=== PATIENT | male | born 1970 | race Caucasian/White ===

== ENCOUNTER 2020-09-16 08:03 | Inpatient (IN) | payer MEDICARE, OTHER ==
[~2020-09-16] VITALS: Ht 114.3 cm; Wt 69.9 kg
[2020-09-16 09:34] LABS: Alanine Aminotransferase 18 U/L (16-61); Albumin 4.4 g/dL (3.4-5.0); Anion Gap 21 (5-15); Blood Urea Nitrogen 39 mg/dL (7-18); Calcium 10.7 mg/dL (8.5-10.1); Carbon Dioxide 13 mmol/L (21-32); Chloride 86 mmol/L (98-107); Magnesium 2.9 mg/dL (1.6-2.6); Sodium 120 mmol/L (136-145)
[2020-09-16 09:36] LABS: Basophils # (auto) 0 10 ^3/uL (0-0.2); Basophils % (auto) 0.4 % (0.0-2.0); Eosinophils # (auto) 0 10 ^3/uL (0-0.8); Eosinophils % (auto) 0.1 % (0.0-7.0); Hematocrit 43.3 % (41.0-53.0); Hemoglobin 13.6 g/dL (13.5-17.5); Lymphocytes # (auto) 1.1 10 ^3/uL (0.4-5.4); Mean Corpuscular Hemoglobin 30.1 pg (28.0-32.0); Mean Corpuscular Hgb Conc. 31.4 g/dL (32.0-36.0); Mean Corpuscular Volume 95.8 fL (80.0-100.0); Monocytes # (auto) 0.2 10 ^3/uL (0-1.3); Monocytes % (auto) 3.7 % (0.0-12.0); Neutrophils # (auto) 5.3 10 ^3/uL (1.6-8.6); Neutrophils % (auto) 79.8 % (37.0-80.0); Platelet Count (auto) 392 10^3/uL (140-450); Red Blood Cells 4.52 10^6/uL (4.5-5.90); Red Cell Distribution Width 14.4 % (11.8-14.3); White Blood Cell 6.6 10^3/uL (4.4-10.8)
[2020-09-16 09:43] LABS: Alkaline Phosphatase 191 U/L (45-117); Aspartate Aminotransferase 9 U/L (15-37); BUN/Creatinine Ratio 23.4; Bilirubin, Total 0.8 mg/dL (0.2-1.0); GFR African American 57 mL/min; GFR Non-African American 47 mL/min; Total Protein 8.9 g/dL (6.4-8.2)
[2020-09-16 09:44] LABS: Glucose 848 mg/dL (74-106); Potassium 6.2 mmol/L (3.5-5.1)
[2020-09-16] MEDS ORDERED: SODIUM CHLORIDE 0.9% 3,000 ML IV ONE (10:00)
[2020-09-16] MEDS ORDERED: InsuLIN R (HUMAN) 100 UNITS in SODIUM CHL 0.9% 99 ML IV SCH ×3 (11:15→18:00)
[2020-09-16] MEDS ORDERED: INSULIN LANTUS (GLARGINE) 1 /0.01ml (100units/ml) SC ONE (11:15)
[2020-09-16] MEDS ORDERED: DEXTROSE (50%) 50ML SYRG IV PRN (11:15)
[2020-09-16] MEDS: SODIUM CHLORIDE 0.9% 1,000 ML IV SCH ×3 (11:52→18:33)
[2020-09-16] MEDS: ACCU-CHEK COMFORT CURVE STRIP VI SCH ×8 (11:54→22:41)
[2020-09-16] MEDS ORDERED: PROCHLORPERAZINE EDISYLATE 5 MG/ML 2ML VIAL IV ONE (12:00)
[2020-09-16] MEDS ORDERED: MORPHINE SULFATE 4 MG/ML SYR/VIAL IV ONE (12:00)
[2020-09-16] MEDS ORDERED: NITROGLYCERIN 0.4 MG SL TAB SL PRN (12:15)
[2020-09-16] MEDS ORDERED: MORPHINE SULF INJ 2 MG/ML SYRINGE 1ML IV PRN (12:15)
[2020-09-16] MEDS ORDERED: ONDANSETRON HCL 4 MG/2 ML VIAL IV PRN (12:15)
[2020-09-16] MEDS ORDERED: InsuLIN REG 1unit/0.01ml Soln (100units/ml) IV ONE (12:15)
[2020-09-16] MEDS ORDERED: CALCIUM GLUC 4.65meq/50ml D5AE 50 ML IV ONE (12:15)
[2020-09-16] MEDS ORDERED: SODIUM BICARBONATE 8.4 % INJ 50ML VIAL IV ONE (12:15)
[2020-09-16] MEDS ORDERED: ENOXAPARIN SOD 30 MG/0.3 ML SYRINGE SC ONE (12:30)
[2020-09-16 13:22] LABS: BUN/Creatinine Ratio 23.2; Calcium 9.6 mg/dL (8.5-10.1)
[2020-09-16 13:36] LABS: Potassium 6.8 mmol/L (3.5-5.1)
[2020-09-16] MEDS ORDERED: SODIUM CHLORIDE 0.9% 1,000 ML IV SCH (15:15)
[2020-09-16 17:50] LABS: Calcium 8.9 mg/dL (8.5-10.1); Potassium 5.3 mmol/L (3.5-5.1)
[2020-09-16 17:54] LABS: BUN/Creatinine Ratio 22.3
[2020-09-16 19:29] LABS: Urine Bacteria NONE SEEN /hpf (None Seen); Urine Blood Negative /uL (Negative); Urine Mucus FEW (None Seen); Urine Specific Gravity 1.021 (1.001-1.035); Urine WBC 1 /hpf (0 - 3)
[2020-09-16 19:50] LABS: Amphetamine Screen, Urine NEGATIVE (NEGATIVE); Barbiturate Scree,Urine NEGATIVE (NEGATIVE); Benzodiazephine Screen, Urine NEGATIVE (NEGATIVE); Cannabinoid Screen, Urine POSITIVE (NEGATIVE); Cocaine Screen, Urine NEGATIVE (NEGATIVE); Opiate Scree,Urine NEGATIVE (NEGATIVE); Phencyclidine Screen, Urine NEGATIVE (NEGATIVE)
[2020-09-16 23:36] LABS: BUN/Creatinine Ratio 25.8; Calcium 8.9 mg/dL (8.5-10.1); Potassium 4.3 mmol/L (3.5-5.1)
[2020-09-17] MEDS: ACCU-CHEK COMFORT CURVE STRIP VI SCH ×8 (00:10→23:30)
[2020-09-17] MEDS: SODIUM CHLORIDE 0.9% 1,000 ML IV SCH (00:10)
--- NOTE | 2020-09-17 03:00 | NUR ---
Called [facility] RN for report. Notified that pt has no new orders. Old critical care orders are still active. [facility] RN states he paged [employer]END[employer] "three hours ago" but will call Liu DELORIS again for new orders prior to patient coming upstairs. Awaiting patient to come up. Room prepared, bed zeroed, bedside table setup.
[2020-09-17] MEDS: MORPHINE SULF INJ 2 MG/ML SYRINGE 1ML IV PRN ×4 (03:19→20:05)
[2020-09-17 03:20] VITALS: BP 104/52
--- NOTE | 2020-09-17 03:20 | NUR ---
Telemetry admit from ER ALBERTO GARCIA admitted to Telemetry unit after SBAR received. Patient oriented to GIL LUNDY RN primary RN, unit, room, bed, and unit policies regarding patient care and visiting hours. Patient now on continuous telemetry monitoring, tele box #[id number] and telemetry reading on arrival to unit is . Patient placed on bedside oxygen, weighed by bedscale and encouraged to call if they need something. All questions and concerns addressed, patient verbalized understanding. Note:
--- NOTE | 2020-09-17 03:55 | NUR ---
returned call Noe PUENTES returned call, updated on patient status and reason for call. Notified that pt has no new orders. Old critical care orders are still active. [facility] ED RN never followed up on clarifying orders prior to patient coming upstairs. New orders received and read back. Call lópez within reach. Bed alarm on. Will continue to monitor patient.
[2020-09-17] MEDS: InsuLIN REG 1unit/0.01ml Soln (100units/ml) SC SCH ×6 (04:00→23:31)
--- NOTE | 2020-09-17 04:00 | NUR ---
Admitting notified of pt's incorrect name spelling. Correct spelling: Ck Ballard.
[2020-09-17] MEDS ORDERED: DEXTROSE (50%) 50ML SYRG IV PRN (04:15)
--- NOTE | 2020-09-17 05:05 | NUR ---
0440 Pt's blood sugar checked, resulted at 25. Rechecked on opposite hand, resulted at 27. Three [place]ht[place] Juice's given with sugar. Will recheck blood sugar. 0505 Pt's blood sugar rechecked. Resulted at 120. Will notify hospitalist. Pt resting comfortably in bed. Call lópez within reach. Will continue to monitor for comfort.
--- NOTE | 2020-09-17 06:00 | NUR ---
Called/tavond Noe TWISTHAND called to notify of critical blood sugar of 25. Waiting for call back. Continue care.
--- NOTE | 2020-09-17 06:51 | NUR ---
returned call Noe PUENTES called to notify of critical blood sugar of 25. Also made aware of repeat at 120. No new orders received. Continue care.
[2020-09-17 08:49] LABS: Calcium 8.7 mg/dL (8.5-10.1); Magnesium 2.4 mg/dL (1.6-2.6); Potassium 4.3 mmol/L (3.5-5.1)
[2020-09-17 08:53] LABS: BUN/Creatinine Ratio 33.3; Bilirubin, Total 0.2 mg/dL (0.2-1.0)
[2020-09-17 09:00] VITALS: BP 109/64
[2020-09-17] MEDS ORDERED: ENOXAPARIN SOD 30 MG/0.3 ML SYRINGE SC SCH (10:00)
[2020-09-17] MEDS ORDERED: INSULIN LANTUS (GLARGINE) 1 /0.01ml (100units/ml) SC SCH (10:00)
--- NOTE | 2020-09-17 11:58 | NUR ---
DR. MILLS IN TO SEE PT. US GALLBLADDER ORDERED.
[2020-09-17 12:14] LABS: Amylase 167 U/L (25-115); Lipase 629 U/L (73-393)
[2020-09-17 13:00] VITALS: BP 109/58
[2020-09-17] MEDS ORDERED: PANTOPRAZOLE 40 MG/10 ML VIAL INJ IV ONE (13:15)
[2020-09-17] MEDS ORDERED: LORazepam 0.5 MG TAB PO PRN (14:15)
[2020-09-17] MEDS: POTASSIUM CHLORIDE 20 MEQ in D5W/LACTATED RINGERS 1,000 ML IV SCH (14:20)
--- NOTE | 2020-09-17 14:43 | NUR ---
Assessment The patient is a 50-year-old male, who is alert and oriented. Patient cognitive abilities are intact. Patient stated that he can do all ADLs independently, patient uses a wheelchair for mobility. Patient stated that he has bi-lateral below the knee amputations. Patient has medical history of diabetes and states that he is insulin-dependent. Patient stated that he has ran out of insulin supplies for a week. Patient stated that he has history with illicit drugs and alcohol abuse in his past. Patient stated that he lives with his sister in [place]. Patient stated that he is visiting [place] on a [employer] trip. Patient stated that he is temporary staying at a [email or web address] house, patient stated that he has a friend (Herve [phone]), Patient stated that his friend Herve will provide transportation post discharge. Patient stated that he receives SSI as a form of income. Patient stated that he has an Advance Directive completed in [place]. Discharge planning: SW provided resources for inpatient and outpatient resources for drug rehabilitation centers including [facility]. SW will ask beside nurse to ask MD to write a one month prescription for diabetic homecare use. Addendum: 09/17/20 at 1444 by TARI CORDERO Amended: Links added.
--- NOTE | 2020-09-17 14:58 | NUR ---
ss consult Per consult no PCP. Betzy Escudero has set patient up with Dr Montez for PCP. Addendum: 09/17/20 at 1459 by Betzy CORDERO Amended: Links added.
[2020-09-17 17:00] VITALS: BP 118/68
--- NOTE | 2020-09-17 17:00 | NUR ---
RFA#18 AND LFA#20 IV CATHETER DC'D, CATHETER INTACT.
[2020-09-17] MEDS: HYDROcodone-ACET 5/325MG TAB PO PRN ×2 (18:03→21:47)
--- NOTE | 2020-09-17 20:05 | NUR ---
Opening Shift Note Assumed care of patient, awake and alert. No S/S of distress/SOB c/o abdominal pain. Instructed on POC and to call for assist PRN, will continue to monitor for changes Q1hr and PRN.Medicated with Morphine 2mg.i.v.p.for pain level of 7/10 as needed.
[2020-09-17 22:00] VITALS: BP 122/68
[2020-09-18] MEDS: MORPHINE SULF INJ 2 MG/ML SYRINGE 1ML IV PRN ×5 (00:20→21:53)
[2020-09-18] MEDS: POTASSIUM CHLORIDE 20 MEQ in D5W/LACTATED RINGERS 1,000 ML IV SCH (00:24)
[2020-09-18] MEDS: HYDROcodone-ACET 5/325MG TAB PO PRN ×4 (03:34→23:36)
[2020-09-18] MEDS: ACCU-CHEK COMFORT CURVE STRIP VI SCH ×6 (03:35→23:39)
[2020-09-18] MEDS: InsuLIN REG 1unit/0.01ml Soln (100units/ml) SC SCH ×6 (03:39→23:41)
[2020-09-18 05:00] VITALS: BP 134/61
--- NOTE | 2020-09-18 07:07 | NUR ---
Report given to Alayna Villegas, patient is resting no distress.
[2020-09-18 07:14] LABS: Basophils # (auto) 0 10 ^3/uL (0-0.2); Basophils % (auto) 0.4 % (0.0-2.0); Eosinophils # (auto) 0 10 ^3/uL (0-0.8); Hematocrit 31.1 % (41.0-53.0); Hemoglobin 10.6 g/dL (13.5-17.5); Lymphocytes # (auto) 1.3 10 ^3/uL (0.4-5.4); Lymphocytes % (auto) 29.5 % (10.0-50.0); Mean Corpuscular Hemoglobin 30.5 pg (28.0-32.0); Mean Corpuscular Hgb Conc. 34.1 g/dL (32.0-36.0); Mean Corpuscular Volume 89.2 fL (80.0-100.0); Monocytes # (auto) 0.3 10 ^3/uL (0-1.3); Monocytes % (auto) 6.9 % (0.0-12.0); Neutrophils # (auto) 2.8 10 ^3/uL (1.6-8.6); Neutrophils % (auto) 62.2 % (37.0-80.0); Platelet Count (auto) 233 10^3/uL (140-450); Red Blood Cells 3.49 10^6/uL (4.5-5.90); Red Cell Distribution Width 14.6 % (11.8-14.3); White Blood Cell 4.5 10^3/uL (4.4-10.8)
[2020-09-18 07:27] LABS: INR 0.97 (0.9-1.15)
[2020-09-18 07:59] LABS: Albumin 2.9 g/dL (3.4-5.0); Calcium 8.5 mg/dL (8.5-10.1); Potassium 4.1 mmol/L (3.5-5.1)
[2020-09-18 08:03] LABS: BUN/Creatinine Ratio 14.3; Bilirubin, Total 0.3 mg/dL (0.2-1.0)
[2020-09-18] MEDS: ENOXAPARIN SOD 40 MG/0.4 ML SYRINGE SC SCH (08:37)
[2020-09-18 09:00] VITALS: BP 159/84
[2020-09-18] MEDS ORDERED: POTASSIUM CHLORIDE 20 MEQ in D5W/LACTATED RINGERS 1,000 ML IV SCH (09:15)
[2020-09-18] MEDS: PANTOPRAZOLE 40 MG/10 ML VIAL INJ IV SCH ×2 (09:44→21:54)
[2020-09-18] MEDS: SUCRALFATE 1 GM/10 ML ORAL SUSP PO SCH ×3 (09:58→21:54)
[2020-09-18] MEDS ORDERED: INSULIN LANTUS (GLARGINE) 1 /0.01ml (100units/ml) SC SCH (10:00)
[2020-09-18] MEDS ORDERED: PANTOPRAZOLE 40 MG/10 ML VIAL INJ IV SCH (10:00)
[2020-09-18 10:09] LABS: Urine Bacteria NONE SEEN /hpf (None Seen); Urine Blood Negative /uL (Negative); Urine Specific Gravity 1.017 (1.001-1.035); Urine WBC 19 /hpf (0 - 3)
[2020-09-18] MEDS ORDERED: cefTRIAXone 1GM/50ML D5W 50 ML IV ONE (10:45)
[2020-09-18] MEDS: PHENAZOPYRIDINE HCL 100 MG TAB PO SCH ×2 (11:43→17:58)
--- NOTE | 2020-09-18 12:05 | NUR ---
Nutrition Assessment Est energy needs 5130-5638 kcal (20-25 kcal/kg BW 75.2kg) Est protein needs 60-75g (0.8-1g/kg BW 75.2kg) Will monitor and reassess prn. Addendum: 09/18/20 at [address] Amended: Links added.
[2020-09-18 13:00] VITALS: BP 130/77
[2020-09-18] MEDS ORDERED: SOD CHL 0.45% 1,000 ML IV ONE (15:15)
[2020-09-18 17:00] VITALS: BP 121/68
--- NOTE | 2020-09-18 19:15 | NUR ---
Opening Shift Note Assumed care of patient, awake and alert. No S/S of distress/SOB or pain. Patient safety measures in place side rails up x2, call light within reach, and bed in lowest position. Instructed on POC and to call for assist PRN, will continue to monitor for changes Q1hr and PRN.
[2020-09-18 22:00] VITALS: BP 131/77
[2020-09-19] MEDS: MORPHINE SULF INJ 2 MG/ML SYRINGE 1ML IV PRN (02:18)
[2020-09-19] MEDS: InsuLIN REG 1unit/0.01ml Soln (100units/ml) SC SCH ×3 (04:00→23:54)
[2020-09-19] MEDS: ACCU-CHEK COMFORT CURVE STRIP VI SCH ×3 (04:23→23:54)
[2020-09-19 05:00] VITALS: BP 137/82
[2020-09-19] MEDS: SUCRALFATE 1 GM/10 ML ORAL SUSP PO SCH ×4 (06:43→22:35)
[2020-09-19 09:00] VITALS: BP 132/72
--- NOTE | 2020-09-19 09:10 | NUR ---
THIS RN SPOKE TO DR. MILLS WITH RESPECT TO THE PT.'S BLOOD SUGAR LEVEL OF 470. DR. MILLS SAID TO FOLLOW SLIDING SCALE; PT. GIVEN 10 UNITS.
[2020-09-19] MEDS: PHENAZOPYRIDINE HCL 100 MG TAB PO SCH ×3 (09:33→18:47)
[2020-09-19] MEDS: ENOXAPARIN SOD 40 MG/0.4 ML SYRINGE SC SCH (09:34)
[2020-09-19] MEDS: cefTRIAXone 1GM/50ML D5W 50 ML IV SCH (09:34)
[2020-09-19] MEDS: PANTOPRAZOLE 40 MG/10 ML VIAL INJ IV SCH ×2 (09:35→22:34)
[2020-09-19 13:00] VITALS: BP 122/71
[2020-09-19] MEDS ORDERED: INSULIN LANTUS (GLARGINE) 1 /0.01ml (100units/ml) SC SCH (13:45)
[2020-09-19] MEDS ORDERED: DEXTROSE (50%) 50ML SYRG IV PRN ×2 (13:45)
--- NOTE | 2020-09-19 15:23 | NUR ---
Discharge instructions given as ordered. Encourage to follow up with PMD as instructed. All questions and concerns addressed. Patient verbalized understanding. Medication reconciliation form completed and copy given to patient. IV removed with catheter intact, and pressure dressing applied. Telemetry unit returned to ICU. Patient taken to vehicle via wheelchair with all personal belongings, accompanied by staff. No distress noted at time of departure. Addendum: 09/19/20 at 1627 by JOSE PULIDO RN RN incorrect pt. disregard.
[2020-09-19] MEDS: METOCLOPRAMIDE HCL 5MG/ml INJ 2ml VIAL IV SCH ×2 (15:35→22:34)
[2020-09-19] MEDS: HYDROmorphone HCL 2 MG/ML VL IV PRN ×2 (15:35→20:54)
[2020-09-19 17:00] VITALS: BP 135/79
--- NOTE | 2020-09-19 20:37 | NUR ---
Dr. Zazueta called and said she was placing the order for the patient to be NPO after midnight, she is going to check the OR schedule tomorrow 09/20/20 and see if she will schedule him for an EGD.
[2020-09-19] MEDS: PROMETHAZINE HCL 25 MG/ML 1ML IV PRN (20:54)
[2020-09-19 22:00] VITALS: BP 135/80
[2020-09-19] MEDS: INSULIN LANTUS (GLARGINE) 1 /0.01ml (100units/ml) SC SCH (22:35)
--- NOTE | 2020-09-20 01:35 | NUR ---
IV removal from MASOOD due to infiltration IV DC'd with clean sterile technique, catheter fully intact. Pressure dressing applied to site. Patient tolerated well.
--- NOTE | 2020-09-20 01:55 | NUR ---
IV insertion IV access obtained, via clean sterile technique by inserting 22 gauge catheter at ANA LAURA after 9 attempt(s). IV secured properly. No trauma to site. Patient tolerated well.
[2020-09-20] MEDS: PROMETHAZINE HCL 25 MG/ML 1ML IV PRN ×3 (02:00→18:49)
[2020-09-20] MEDS: HYDROmorphone HCL 2 MG/ML VL IV PRN ×5 (02:00→21:03)
[2020-09-20 05:00] VITALS: BP 116/70
[2020-09-20 05:24] LABS: Basophils # (auto) 0 10 ^3/uL (0-0.2); Basophils % (auto) 0.7 % (0.0-2.0); Eosinophils # (auto) 0.1 10 ^3/uL (0-0.8); Eosinophils % (auto) 3.2 % (0.0-7.0); Hematocrit 37.3 % (41.0-53.0); Hemoglobin 12.4 g/dL (13.5-17.5); Lymphocytes # (auto) 1.4 10 ^3/uL (0.4-5.4); Lymphocytes % (auto) 43.2 % (10.0-50.0); Mean Corpuscular Hgb Conc. 33.4 g/dL (32.0-36.0); Monocytes # (auto) 0.3 10 ^3/uL (0-1.3); Monocytes % (auto) 8.9 % (0.0-12.0); Neutrophils # (auto) 1.4 10 ^3/uL (1.6-8.6); Nucleated Red Blood Cells % 0.2 %; Platelet Count (auto) 264 10^3/uL (140-450); Red Blood Cells 4.14 10^6/uL (4.5-5.90); Red Cell Distribution Width 14.6 % (11.8-14.3); White Blood Cell 3.3 10^3/uL (4.4-10.8)
[2020-09-20] MEDS: InsuLIN REG 1unit/0.01ml Soln (100units/ml) SC SCH ×3 (06:00→17:43)
[2020-09-20] MEDS: ACCU-CHEK COMFORT CURVE STRIP VI SCH ×3 (06:20→17:42)
[2020-09-20] MEDS: METOCLOPRAMIDE HCL 5MG/ml INJ 2ml VIAL IV SCH ×3 (06:38→21:47)
[2020-09-20] MEDS: SUCRALFATE 1 GM/10 ML ORAL SUSP PO SCH ×4 (06:38→21:47)
--- NOTE | 2020-09-20 07:30 | NUR ---
Opening Shift Note Assumed care of patient, awake and alert. No S/S of distress/SOB or pain. Instructed on POC and to call for assist PRN, will continue to monitor for changes Q1hr and PRN. Fall precautions in place per safety protocol.
[2020-09-20 08:25] VITALS: BP 119/69
[2020-09-20] MEDS: PHENAZOPYRIDINE HCL 100 MG TAB PO SCH (08:30)
[2020-09-20] MEDS: cefTRIAXone 1GM/50ML D5W 50 ML IV SCH (10:03)
[2020-09-20] MEDS: PANTOPRAZOLE 40 MG/10 ML VIAL INJ IV SCH ×2 (10:03→21:47)
--- NOTE | 2020-09-20 10:04 | NUR ---
GI Spoke to MD Zazueta regarding patients EGD for today. Per MD Zazueta patient will not have procedure today. New orders to advance diet as tolerated, starting with clear liquids received. Will carry out new orders and cont to monitor patient.
[2020-09-20] MEDS: ENOXAPARIN SOD 40 MG/0.4 ML SYRINGE SC SCH (10:13)
[2020-09-20] MEDS: INSULIN LANTUS (GLARGINE) 1 /0.01ml (100units/ml) SC SCH ×2 (10:13→21:48)
[2020-09-20] MEDS ORDERED: LACTULOSE 20Gm/30ML SOLN PO PRN (12:15)
[2020-09-20 12:41] VITALS: BP 128/71
--- NOTE | 2020-09-20 14:05 | NUR ---
Nutrition Followup Note Wt 70kg Pt was alert and oriented at rounds. Pt reports appetite is good but unable to eat. Pt was NPO at time of rounds d/t to pt was to go for EGD. Pt no longer getting EGD per RN note pt diet adv to [facility] soft. Pt po intake prior to NPO was good aeb pt with 90% avg po intake x 2 days per RN note. Est energy needs 8807-0512 kcal (20-25 kcal/kg BW 75.2kg) Est protein needs 60-75g (0.8-1g/kg BW 75.2kg) Will monitor and reassess prn. Labs: Alb 2.9L BM: Pt with 1 BM / per Rn note Skin; BS 18 mod risk, full details in physician locums urgent care note PES: Resolved: Inadequate oral intake r/t current medical condition aeb pt with a clear liquid diet Comments: 1) Continue to monitor po intake, labs, skin, weight 2) refer pt to [facility]PD on Dc 3) Continue current plan of care Expected Outcomes/Goals: 1) pt to consume >75% of po intake 2) pt to maintain wt while in hospital 3) f/u 3-5 days
[2020-09-20 16:30] VITALS: BP 117/70
--- NOTE | 2020-09-20 19:30 | NUR ---
Opening Shift Note Assumed care of patient, awake and alert x4. No S/S of distress/SOB or pain. Call light is within reach, side rails up x2, bed is in the lowest position. Instructed on POC and to call for assist PRN, will continue to monitor for changes Q1hr and PRN.
--- NOTE | 2020-09-20 20:30 | NUR ---
IV insertion to right wrist IV access obtained, via clean sterile technique by inserting 22 gauge catheter at right wrsit after 1 attempt(s). IV secured properly. No trauma to site. Patient tolerated well.
[2020-09-20 21:00] VITALS: BP 114/62
[2020-09-21] MEDS: ACCU-CHEK COMFORT CURVE STRIP VI SCH ×4 (00:26→17:09)
[2020-09-21] MEDS: HYDROmorphone HCL 2 MG/ML VL IV PRN ×5 (01:15→22:12)
[2020-09-21] MEDS: PROMETHAZINE HCL 25 MG/ML 1ML IV PRN ×3 (01:16→22:13)
[2020-09-21 05:00] VITALS: BP 102/70
[2020-09-21] MEDS: InsuLIN REG 1unit/0.01ml Soln (100units/ml) SC SCH ×4 (06:00→17:51)
[2020-09-21] MEDS: SUCRALFATE 1 GM/10 ML ORAL SUSP PO SCH ×4 (06:33→21:26)
[2020-09-21] MEDS: METOCLOPRAMIDE HCL 5MG/ml INJ 2ml VIAL IV SCH ×3 (06:33→21:26)
--- NOTE | 2020-09-21 06:56 | NUR ---
Closing note Patient is resting in bed asleep, no S/S of pain or distress noted.
[2020-09-21 09:00] VITALS: BP 108/59
[2020-09-21] MEDS: cefTRIAXone 1GM/50ML D5W 50 ML IV SCH (09:11)
[2020-09-21] MEDS: PANTOPRAZOLE 40 MG/10 ML VIAL INJ IV SCH ×2 (09:11→21:26)
[2020-09-21] MEDS: ENOXAPARIN SOD 40 MG/0.4 ML SYRINGE SC SCH (09:11)
[2020-09-21] MEDS: INSULIN LANTUS (GLARGINE) 1 /0.01ml (100units/ml) SC SCH ×2 (09:17→22:05)
--- NOTE | 2020-09-21 11:30 | NUR ---
Diet Patient switched to full liquid diet as he is not tolerated soft diet well. Will cont to monitor patient.
[2020-09-21 13:00] VITALS: BP 150/81
[2020-09-21 17:00] VITALS: BP 133/78
[2020-09-21 22:00] VITALS: BP_SYST 109; BP_SYST 130; BP_DIAS 72; BP_DIAS 74
[2020-09-22] MEDS: ACCU-CHEK COMFORT CURVE STRIP VI SCH ×3 (00:36→12:07)
[2020-09-22] MEDS: InsuLIN REG 1unit/0.01ml Soln (100units/ml) SC SCH ×3 (00:36→12:00)
[2020-09-22] MEDS: HYDROmorphone HCL 2 MG/ML VL IV PRN ×3 (04:48→13:50)
[2020-09-22] MEDS: PROMETHAZINE HCL 25 MG/ML 1ML IV PRN ×2 (04:48→09:51)
[2020-09-22 05:00] VITALS: BP 94/42
[2020-09-22] MEDS: METOCLOPRAMIDE HCL 5MG/ml INJ 2ml VIAL IV SCH ×2 (05:59→13:49)
[2020-09-22] MEDS: SUCRALFATE 1 GM/10 ML ORAL SUSP PO SCH ×2 (06:47→11:53)
[2020-09-22 08:00] VITALS: BP 112/65
--- NOTE | 2020-09-22 08:40 | NUR ---
Paged Dr Robert Zazueta to inform her patient is nauseous when advanced to mechanical soft diet
[2020-09-22 09:00] VITALS: BP 112/65
[2020-09-22] MEDS: ENOXAPARIN SOD 40 MG/0.4 ML SYRINGE SC SCH (09:50)
[2020-09-22] MEDS: cefTRIAXone 1GM/50ML D5W 50 ML IV SCH (09:50)
[2020-09-22] MEDS: PANTOPRAZOLE 40 MG/10 ML VIAL INJ IV SCH (09:50)
[2020-09-22] MEDS: INSULIN LANTUS (GLARGINE) 1 /0.01ml (100units/ml) SC SCH (10:00)
[2020-09-22] MEDS ORDERED: diphenhdrAMINE HCL 50 MG/1 ML VL ONE (10:05)
[2020-09-22] MEDS ORDERED: LIDOCAINE VISCOUS 2% 15ML UD ONE (10:05)
[2020-09-22] MEDS ORDERED: SODIUM CHLORIDE LOCK 10 ML ONE (10:05)
[2020-09-22] MEDS: fentaNYL CITRATE 100 MCG/2 ML VL ONE ×2 (10:25→10:28)
[2020-09-22] MEDS: MIDAZOLAM HCL 5 MG/ML-1ML VIAL ONE ×2 (10:25→10:28)
--- NOTE | 2020-09-22 11:20 | NUR ---
Patient back in room from procedure. Patient resting comfortably with no complaints of pain or discomfort at this time. VS: 124/75, 97.4, 96, 18, 98%. Will continue to monitor.
[2020-09-22] MEDS ORDERED: PANCREATIC ENZYMES 4200 UNIT CAP PO SCH (12:00)
--- NOTE | 2020-09-22 12:08 | NUR ---
LOW BLOOD SUGAR Patients blood sugar 53, Apple juice given and will recheck level. Patient is alert and oriented drinking juice
--- NOTE | 2020-09-22 12:54 | NUR ---
BLOOD SUGAR RECHECK Patients blood sugar is now 162. Will continue to monitor.
[2020-09-22 13:00] VITALS: BP 124/75
[2020-09-22] MEDS ORDERED: PANT40TA2 PO (13:31)
[2020-09-22] MEDS ORDERED: SUCR1TAB22 PO (13:31)
[2020-09-22] MEDS ORDERED: METO10TA3 PO (13:31)
[2020-09-22] MEDS ORDERED: PANC1CAP48 PO (13:31)
[2020-09-22] MEDS ORDERED: INSLANTI SC (13:31)
--- NOTE | 2020-09-22 14:26 | NUR ---
Gayle in will have WC delivered bedside before patient d/c today
[2020-09-22 15:44] VITALS: BP 124/75
--- NOTE | 2020-09-22 16:01 | NUR ---
D/C Planning Per social service consult for a wheelchair. Faxed clinical information to [employer]. Per Ana White order has been received and wheelchair to deliver to bedside between 17:00-18:00. Ana White advised me patient has a 10dll co-pay. Informed RN Mary who spoke to patient and patient is in agreement to pay the co-pay.
--- NOTE | 2020-09-22 17:15 | NUR ---
Patients ride came before medications and wheelchair were delivered. Patient said he will come back tomorrow for medications because his ride did not bring his money as he said he would. I informed the patient we could try and get a taxi voucher to ensure his medications and wheelchair are with him before he discharges. Patient refused and said he will come tomorrow for medications. I informed Gayle in that patient left without WC, however the delivery company said they would deliver to patients home tomorrow. Discharge instructions given as ordered. Encourage to follow up with PMD as instructed on Sep 29 @ 3:00. All questions and concerns addressed. Patient verbalized understanding. Medication reconciliation form completed and copy given to patient. Patient refused needed vaccines. IV removed with catheter intact and pressure dressing applied. Patient taken to vehicle via wheelchair with all personal belongings, accompanied by staff member. No distress noted at time of departure. I again stressed the importance to the patient to pickup his medications.
[2020-09-23] MEDS ORDERED: cefTRIAXone 1GM/50ML D5W 50 ML IV SCH (09:00)
== END 2020-09-22 17:15 | disposition home or self-care (01) | DRG 637 ==
LOC: ER 08:03 → EDBD 08:03 → TELE 08:04 → TELE-WESTW 09-17 03:10 → WEST WING 09-19 16:23
PROVIDERS: ADMIT Nurse Practitioner Acute Care; ATTEND Internal Medicine
PROC: 0DB88ZX Excision of Small Intestine, Via Natural or Artificial Opening Endoscopic, Diagnostic (ICD-10-PCS; 2020-09-22)
PROC: 0DB68ZX Excision of Stomach, Via Natural or Artificial Opening Endoscopic, Diagnostic (ICD-10-PCS; principal; 2020-09-22 10:16)
DX: E11.10 Type 2 diabetes mellitus with ketoacidosis without coma (principal); N17.0 Acute kidney failure with tubular necrosis; N39.0 Urinary tract infection, site not specified; K86.1 Other chronic pancreatitis; E87.5 Hyperkalemia; E87.8 Other disorders of electrolyte and fluid balance, not elsewhere classified; E86.0 Dehydration; E11.649 Type 2 diabetes mellitus with hypoglycemia without coma; I10 Essential (primary) hypertension; K29.70 Gastritis, unspecified, without bleeding; K29.80 Duodenitis without bleeding; F12.10 Cannabis abuse, uncomplicated; K44.9 Diaphragmatic hernia without obstruction or gangrene; E11.621 Type 2 diabetes mellitus with foot ulcer; L97.509 Non-pressure chronic ulcer of other part of unspecified foot with unspecified severity; Z20.828 Contact with and (suspected) exposure to other viral communicable diseases; Z83.3 Family history of diabetes mellitus; Z79.4 Long term (current) use of insulin; Z89.511 Acquired absence of right leg below knee; Z89.512 Acquired absence of left leg below knee; Z91.14 Patient's other noncompliance with medication regimen; Z91.19 Patient's noncompliance with other medical treatment and regimen
CPT/HCPCS: 36415; 36600; 43239; 71045; 74176; 76705; 80048; 80053; 80307; 81001; 82010; 82150; 82805; 82962; 83036; 83690; 83735; 83930; 84100; 84484; 85025; 85610; 85730; 86850; 86900; 86901; 87086; 87088; 87426; 93005; 96365; 96366; 96368; 96372; 96375; 96376; 99291; C9113; G0378; J0610; J0696; J1815; J2250; J2405